=== PATIENT | female | born 1930 | race Caucasian/White ===

== ENCOUNTER 2017-06-12 03:38 | Emergency (ER) | payer MEDICARE, BC ==
--- NOTE | 2017-06-12 03:56 | EDM.PDOC ---
ED HPI GENERAL MEDICAL PROBLEM - General Chief Complaint: General Stated Complaint: fall, neck pain Time Seen by Provider: 06/12/17 03:45 Source of Information: Reports: Patient, EMS, Old Records ([facility] chart/EMR) History Limitations: Reports: No Limitations - History of Present Illness INITIAL COMMENTS - FREE TEXT/NARRATIVE: The patient was brought to the emergency room via ambulance in spinal immobilization secondary to a minor fall in her home. The patient was walking up her basement stairs when she fell backwards onto her right shoulder blade on the top steps themselves with no significant fall in distance, head injury, loss of consciousness, change in mental status, neck pain, paresthesias, neurological deficits, etc. She did apparently initially complain of some minor neck pain to the paramedics with cervical collar and full spinal restraints started. She was also started and some O2 although her O2 sat was 92% at home with injury occurring at about 23:00 hours. The patient did place some ice packs to the area with no other medications taken. The patient denies any chest pain/pressure, heart flutter, dizziness, orthostasis, orthopnea, diaphoresis, paresthesias, recent decreased exercise tolerance, or any other anginal-type symptoms. She was recently discharged from [facility] on 05/21 secondary to carotid stent placement and mild TIA as below. No recent history of abdominal pain, heartburn, diarrhea, melena, gross hematochezia, or any food intolerance, including fatty foods, etc., although she has some mild nausea and right lower pleurisy with deep inspiration. The patient also denies any recent fever, cough , wheezing, dyspnea, etc.. No history of recent headaches, visual changes, diplopia, or other change in neurological status. Patient denies neck pain at this time Onset: Today, Sudden Onset Date: 06/11/17 Onset Time: 23:00 Duration: Constant, Getting Worse Location: Reports: Chest (Right scapular and rib pain as above). Denies: Neck, Abdomen, Back, Pelvis, Upper Extremity, Left, Upper Extremity, Right, Lower Extremity, Left, Lower Extremity, Right, Radiates to Quality: Reports: Sharp Severity: Moderate Improves with: Reports: Rest Worsens with: Reports: Breathing, Movement Context: Reports: Trauma (As above) Associated Symptoms: Reports: Chest Pain (As above). 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 Denies : IV/IO Right Upper Back Pain Score (Numeric/FACES): 5 - Related Data Allergies Allergy/AdvReac Type Severity Reaction Status Date / Time morphine Allergy UNKNOWN Verified 09/08/15 08:18 nitrofurantoin Allergy Cannot Verified 06/12/17 03:58 [From Macrobid] Remember nitrofurazone [From Furacin] Allergy Blisters Verified 09/08/15 08:18 Home Meds: Home Meds Aspirin [Halfprin] 1 tab PO DAILY 07/03/14 [History] Cholecalciferol (Vitamin D3) [Vitamin D3] 5 tab PO DAILY 07/03/14 [History] Cyanocobalamin (Vitamin B12) [Vitamin B12] 1,000 mcg PO DAILY 07/03/14 [History] Multivitamin [Multivitamins] 1 tab PO DAILY 07/03/14 [History] Metoprolol Succinate [Toprol XL] 50 mg PO BID 09/07/15 [History] Ubidecarenone [Coq-10] 100 mg PO BID 09/07/15 [History] Hydrochlorothiazide 50 mg PO DAILY 09/08/15 [History] Lisinopril 10 mg PO BID 06/12/17 [History] Ticagrelor [Brilinta] 90 mg PO DAILY 06/12/17 [History] atorvaSTATin Calcium [Atorvastatin Calcium] 40 mg PO BEDTIME 06/12/17 [History] Past Medical History HEENT History: Reports: Cataract, Glaucoma, Hard of Hearing, Impaired Vision, Other (See Below). Denies: Allergic Rhinitis, Macular Degeneration, Retinal Detachment Other HEENT History: Borderline glaucoma, patient wears glasses, mild bilateral presbycusis, chronic vertigo, nasal septum deviation Cardiovascular History: Reports: Afib, Aneurysm, Arrhythmia, CAD, Cardiomyopathy , High Cholesterol, Hypertension, PVD, Stents, Other (See Below). Denies: Blood Clots/VTE/DVT, Heart Failure, Heart Murmur, MA, Syncope Other Cardiovascular History: Brief atrial fibrillation, borderline AAA with last measurement of 3.[address] scan, moderate carotid occlusive disease including right-sided 7079 percent stenosis by last carotid artery Doppler studies with recent stent placement as below, complete right bundle branch block , PVCs, PACs, left atrial enlargement by echocardiogram with minimal valvular disease, coronary artery disease/calcifications by CT scans with no history of MA, varicose veins Respiratory History: Reports: COPD, Intubation, Previous, Pulmonary Fibrosis, Sleep Apnea, Other (See Below). Denies: Intubation, Difficult, PE, Pneumothorax Other Respiratory History: History of nocturnal hypoxemia/sleep apnea with previous CPAP but no current oxygen supplementation, benign bilateral granulomatosis/pulmonary nodules Gastrointestinal History: Reports: Bowel Obstruction, Cholelithiasis, Chronic Diarrhea, Colon Polyp, Diverticulosis, Gastritis, Irritable Bowel Syndrome, PUD , Other (See Below). Denies: Celiac Disease, Chronic Constipation, GI Bleed, Inflammatory Bowel Disease Other Gastrointestinal History: History of recurrent diverticulitis, pre- cancerous polyp, fatty liver with secondary LFTs elevation Genitourinary History: Reports: Chronic Renal Insuffiency, Diabetic Nephropathy , Renal Calculus (Bilateral nephrolithiasis and renal cysts), Urinary Incontinence, UTI, Recurrent, Other (See Below). 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 Denies: Hypothyroidism Other Endocrine/Metabolic History: AODM diet controlled Hematologic History: Reports: Blood Transfusion(s), Other (See Below). 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 Denies: Eczema, Psoriasis - Infectious Disease History Infectious Disease History: Reports: Chicken Pox (At age 27) - Past Surgical History Head Surgeries/Procedures: Reports: None HEENT Surgical History: Reports: Adenoidectomy, Cataract Surgery, Tonsillectomy , Other (See Below) Other HEENT Surgeries/Procedures: Bilateral cataract surgery in 2011, tonsillectomy at age 12 Cardiovascular Surgical History: Reports: Carotid Stents, Varicose, Other (See Below) Other Cardiovascular Surgeries/Procedures: Right carotid artery stent placement on 05/19/17 Left leg varicose vein stripping on 02/28/06 GI Surgical History: Reports: Appendectomy, Colon, Colonoscopy, Polypectomy, Other (See Below) Other GI Surgeries/Procedures: Open cholecystectomy with concurrent appendectomy in about 1949, partial colectomy secondary to diverticulosis and adhesions on 02/17/1992 with additional bowel resection secondary to precancerous colonic polyp and only about 40 cm of her colon remaining, last colonoscopy on 09/08/15 Female Surgical History: Reports: Breast Biopsy, D&C, Hysterectomy, Lithotripsy/ESWL, Mastectomy, Salpingo-Oophorectomy, Other (See Below) Other Female Surgeries/Procedures: Hysterectomy with one-sided oophorectomy secondary to dysfunctional uterine bleeding in about 1978, D&C in 1978 secondary to SAB, left breast needle biopsy on 04/08/09 with subsequent left modified radical mastectomy on 04/28/2009, right-sided lithotripsy on 06/24/15 Neurological Surgical History: Reports: None. Denies: C-Spine, Discectomy, Laminectomy, Lumbar Spine, Sacral Spine, Spinal Fusion, Vertebroplasty Musculoskeletal Surgical History: Reports: Arthroscopic Knee, Arthroscopic Procedure, Carpal Tunnel, Shoulder Surgery, Other (See Below). Denies: Ganglion Cyst, Joint Replacement, ORIF Other Musculoskeletal Surgeries/Procedures:: Left knee and left shoulder arthroscopic evaluations on 06/14/02, left carpal tunnel release on 09/01/09 Oncologic Surgical History: Reports: Biopsy of Breast, Mastectomy, Other (See Below) Other Oncologic Surgeries/Procedures: Breast biopsy and mastectomy as above - Past Imaging History Past Imaging History: Reports: Angiography (Carotid angiogram with right sided stent placement on 05/19/17), Cardiac Echo (01/05/12 with ejection fraction of 61%) , Carotid US (Last on 10/12/14), CAT Scan (Last CT scan of the head in May 2017 with multiple previous studies including on 08/08/16, CT of the abdomen and pelvis on 03/01/15, CT of the chest with contrast on 05/03/16 with previous evaluation on 06/25/11), DEXA Scan (05/09/09), Mammogram (Last mammogram on 05/03/16 ), MRA (MRA/MRI of the cervical and head region in May 2017), MRI, Sleep Study (Last on 03/04/12), Stress Testing (Cardiolite stress test on 08/10/10 with ejection fraction of 77%), Ultrasound (Last renal ultrasound on 05/11/16 with previous evaluation on 06/27/11, thyroid ultrasound on 06/27/11) Social & Family History - Family History Cardiac: Reports: CAD, Hypertension, MA, Other (See Below) Other Cardiac Family History: Father with MA in his 70s, hypertension in parents GI: Reports: Hepatitis, Jaundice, Other (See Below) Other GI Family History: Son with history of liver transplant at age 44 secondary to alcohol and Tylenol abuse Musculoskeletal: Reports: Osteoarthritis, Other (See Below) Other Musculoskeletal Family History: Mother with severe osteoarthritis Neurological: Reports: CVA, Other (See Below) Other Neurological Family History: Maternal grandfather with fatal CVA at age 75 , mother with CVA at age 95 Psychiatric: Reports: Anxiety, Depression, Other (See Below) Other Psychiatric Family History: Son with history of anxiety depression disorder and alcohol abuse Endocrine/Metabolic: Reports: Diabetes, type II, Other (See Below) Other Endocrine/Metabolic Family History: AODM and mother, unknown type of thyroid disorder in brother and niece Oncologic: Reports: Bladder, Breast, Non-Hodgkin's Lymphoma, Ovarian, Other ( See Below) Other Oncologic Family History: Maternal aunt with breast cancer in her 70s, maternal aunt with bladder cancer in her 80s, daughter with ovarian cancer at age 45, son who had previous liver transplant also suffered from salivary cancer at age 53, son with Burkitt's lymphoma at age 53 which was fatal, first maternal cousin with gallbladder cancer in her 60s - Tobacco Use Smoking Status *Q: Former Smoker Tobacco Use Within Last Twelve Months: Cigarettes Years of Tobacco use: 58 Packs/Tins Daily: 1.5 Used Tobacco, but Quit: Yes Month Tobacco Last Used: January 2017 Smoking Cessation Information Provided To Patient: No Second Hand Smoke Exposure: No - Caffeine Use Caffeine Use: Reports: Coffee (3 cups per day) - Alcohol Use Alcohol Use History: Yes Days Per Week of Alcohol Use: 0 (No previous DWIs, problems with alcohol abuse, etc.) Number of Drinks Per Day: 1 (Occasional wine or beer with dinner) Total Drinks Per Week: 0 Alcohol Use in Last Twelve Months: Yes Alcohol Use Frequency: Socially - Recreational Drug Use Recreational Drug Use: No Drug Use in Last 12 Months: No - Living Situation & Occupation Living situation: Reports: (1989), Alone 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 Denies: Fever, Chills, Weakness, Fatigue , Night Sweats, Diaphoresis, Decreased Appetite, Weight Loss, Weight Gain HEENT: Reports: No Symptoms, Glasses, Hearing Loss. Denies: Dental Pain, Ear Pain, Eye Pain, Throat Pain, Throat Swelling, Vertigo, Vision Change Respiratory: Reports: Pleuritic Chest Pain (Mild to moderate Right lower anterolateral chest wall, rib pain with deep inspiration and by palpation), Other (Right scapular pain). Denies: Cough, Sputum, Hemoptysis Cardiovascular: Reports: Chest Pain (Right chest wall pain as above), Blood Pressure Problem (Somewhat elevated on arrival). Denies: Dyspnea on Exertion, Edema, Lightheadedness, Orthopnea, Palpitations, PND, Syncope Endocrine: Reports: No Symptoms. Denies: Fatigue, High Glucose GI/Abdominal: Reports: No Symptoms. Denies: Abdominal Pain, Anorexia, Black Stool, Bloody Stool, Constipation, Diarrhea, Decreased Appetite, Difficulty Swallowing, Distension, Hematochezia, Melena, Nausea, Stool Incontinence, Vomiting : Reports: Incontinence (Stable chronic). Denies: Discharge, Dysuria, Flank Pain, Frequency, Hematuria, Urgency, Urinary Retention Musculoskeletal: Reports: Other (Right scapular pain as above). Denies: Neck Pain, Shoulder Pain, Arm Pain, Leg Pain Skin: Reports: Bruising (Right scapular region). Denies: Cyanosis, Pallor, Diaphoresis, Wound Neurological: Reports: No Symptoms. Denies: Confusion, Dizziness, Headache, Numbness, Paresthesia, Seizure, Syncope, Tingling, Weakness Psychiatric: Reports: No Symptoms. Denies: Agitation, Anxiety, Confusion, Depression, Hallucinations, Suicidal Ideation Hematologic/Lymphatic: Reports: No Symptoms Immunologic: Reports: No Symptoms ED EXAM, GENERAL - Physical Exam Exam: See Below Exam Limited By: No Limitations General Appearance: Alert, WD/WN, No Apparent Distress Eye Exam: Bilateral Eye: EOMI, Normal Fundi, Normal Inspection (No nystagmus), PERRL Ears: Normal External Exam, Normal Canal, Normal TMs, Hearing Loss (Mild bilateral presbycusis) Nose: Normal Inspection, Normal Mucosa, No Blood. No: Clear Rhinorrhea Throat/Mouth: Normal Inspection, Normal Lips, Normal Gums, Normal Oropharynx, Normal Voice, No Airway Compromise. No: Normal Teeth (Complete upper dentures, partial lowers), Dysphagia, Perioral Cyanosis Head: Atraumatic, Normocephalic. No: Facial Swelling, Facial Tenderness, Sinus Tenderness Neck: Supple, Non-Tender, Full Range of Motion, Carotid Bruit (Mild bilateral carotid bruits). No: Lymphadenopathy (L), Lymphadenopathy (R), Thyromegaly Respiratory/Chest: No Respiratory Distress, Lungs Clear, Normal Breath Sounds, No Accessory Muscle Use, Other (Right-sided mid lateral 4 cm moderate ecchymosis with moderate localized palpation pain, additional right-sided lateral inferior rib pain by palpation with no crepitation, deformity, ecchymosis in this area, etc.). No: Pleural Rub, Retractions, Splinting Cardiovascular: Normal Peripheral Pulses, Regular Rate, Rhythm, No Edema, No Gallop, No JVD, No Murmur, No Rub. No: Gallop/S3, Gallop/S4, Friction Rub Peripheral Pulses: 2+: Radial (L), Radial (R), Femoral (L), Femoral (R) (No evidence of right femoral artery aneurysm with mild ecchymosis in this region and clear dressing in place), Dorsalis Pedis (L), Dorsalis Pedis (R) GI/Abdominal: Normal Bowel Sounds, Soft, Non-Tender, No Organomegaly, No Distention, No Abnormal Bruit, No Mass, Pelvis Stable, Other (Multiple abdominal scars with mild ecchymosis in the lower right abdominal region secondary to recent carotid stent placement). No: Rebound (Female) Exam: Deferred Rectal (Female) Exam: Deferred Back Exam: Normal Inspection, Full Range of Motion, Other (Scoliosismild). No : CVA Tenderness (L), CVA Tenderness (R), Muscle Spasm Extremities: Normal Inspection, Normal Range of Motion, Non-Tender, No Pedal Edema, Normal Capillary Refill. No: Melissa's Sign Neurological: Alert, Oriented, CN II-XII Intact, Normal Cognition, Normal Gait, Normal Reflexes (Negative Babinski's, finger to nose, and pronator rotation tests. No evidence of facial paresis, tongue deviation, orthostasis, etc.. Excellent reverse thought processes.), No Motor/Sensory Deficits Psychiatric: Normal Affect, Normal Mood Skin Exam: Ecchymosis (As above), Wound/Incision (Old 1 cm in diameter eschar over right elbow). No: Diaphoretic Lymphatic: No Adenopathy Course - Vital Signs Last Recorded V/S: Last Vital Signs Temp 36.8 C 06/12/17 03:39 Pulse 89 06/12/17 04:52 Resp 18 06/12/17 03:39 BP 152/90 H 06/12/17 04:52 Pulse Ox 97 06/12/17 03:39 Vital Signs - 24 hr 06/12/17 06/12/17 06/12/17 03:39 03:56 04:52 Temperature [ 36.8 C Oral] Pulse, 92 89 Peripheral [ Left Pulse Oximetry] Respiratory 18 Rate Blood Pressure 166/103 H 162/90 H 152/90 H [Left Upper Arm ] O2 Sat by Pulse 97 Oximetry - Orders/Labs/Meds Orders: Active Orders 24 hr Category Date Time Status Cardiac Monitoring [RC] . DIRECTED Care 06/12/17 03:57 Active Peripheral IV Care [RC] . DIRECTED Care 06/12/17 04:02 Active Cervical Spine wo Cont [CT] Stat Exams 06/12/17 03:57 Stop Req Cervical Spine wo Cont [CT] Stat Exams 06/12/17 03:57 Taken Chest wo Cont [CT] Stat Exams 06/12/17 04:15 Taken Ribs 2V w Chest Rt [CR] Stat Exams 06/12/17 04:01 Taken Sodium Chloride 0.9% [Saline Flush] Med 06/12/17 04:01 Active 10 ml FLUSH ASDIRECTED PRN Obtain Past Medical Record [OM.PC] Urgent Oth 06/12/17 04:03 Active Peripheral IV Insertion Adult [OM.PC] Stat Oth 06/12/17 04:01 Ordered Medication Orders Sodium Chloride (Saline Flush) 10 ml FLUSH ASDIRECTED PRN PRN Reason: Keep Vein Open Labs: Laboratory Tests 06/12/17 06/12/17 06/12/17 Range/Units 04:15 04:15 04:15 WBC 11.3 H (4.0-10.2) K/uL RBC 4.40 (3.77-5.09) M/uL Hgb 14.2 (11.7-15.5) g/dL Hct 41.4 (34.0-46.0) % MCV 94.1 (84.0-98.0) fL MCH 32.3 (28.2-33.3) pg MCHC 34.3 (31.7-36.0) g/dL RDW 13.6 (11.2-14.1) % Plt Count 126 L (150-350) K/uL Neut % (Auto) 83.7 H (45.0-80.0) % Lymph % (Auto) 7.3 L (10.0-50.0) % Boyle % (Auto) 8.4 (2.0-14.0) % Eos % (Auto) 0.4 (0.0-5.0) % Baso % (Auto) 0.2 (0.0-2.0) % Neut # (Auto) 9.46 H (1.40-7.00) K/uL Lymph # (Auto) 0.82 (0.50-3.50) K/uL Boyle # (Auto) 0.95 (0.00-1.00) K/uL Eos # (Auto) 0.05 (0.00-0.50) K/uL Baso # (Auto) 0.02 (0.00-0.20) K/uL PT 11.4 (9.8-11.7) SEC INR 1.1 APTT 22.4 L (23.5-30.0) SEC Sodium 140 (136-145) mmol/L Potassium 3.6 (3.5-5.1) mmol/L Chloride 102 (98-107) mmol/L Carbon Dioxide 29.4 (21.0-32.0) mmol/L BUN 20 H (7-18) mg/dL Creatinine 0.88 (0.51-1.17) mg/dL Est Cr Clr Drug Dosing 33.57 mL/min Estimated GFR (MDRD) > 60 mL/min Glucose 162 H (74-106) mg/dL Lactic Acid (0.4-2.0) mmol/L Calcium 8.8 (8.5-10.1) mg/dL Magnesium 1.7 L (1.8-2.4) mg/dL Total Bilirubin 0.9 (0.2-1.0) mg/dL AST 38 H (15-37) U/L ALT 38 (12-78) U/L Alkaline Phosphatase 90 (46-116) IU/L Total Protein 7.9 (6.4-8.2) g/dL Albumin 3.8 (3.4-5.0) g/dL Amylase 95 (25-115) U/L Lipase 148 (73-393) U/L 07/26/17 Range/Units 04:15 WBC (4.0-10.2) K/uL RBC (3.77-5.09) M/uL Hgb (11.7-15.5) g/dL Hct (34.0-46.0) % MCV (84.0-98.0) fL MCH (28.2-33.3) pg MCHC (31.7-36.0) g/dL RDW (11.2-14.1) % Plt Count (150-350) K/uL Neut % (Auto) (45.0-80.0) % Lymph % (Auto) (10.0-50.0) % Boyle % (Auto) (2.0-14.0) % Eos % (Auto) (0.0-5.0) % Baso % (Auto) (0.0-2.0) % Neut # (Auto) (1.40-7.00) K/uL Lymph # (Auto) (0.50-3.50) K/uL Boyle # (Auto) (0.00-1.00) K/uL Eos # (Auto) (0.00-0.50) K/uL Baso # (Auto) (0.00-0.20) K/uL PT (9.8-11.7) SEC INR APTT (23.5-30.0) SEC Sodium (136-145) mmol/L Potassium (3.5-5.1) mmol/L Chloride (98-107) mmol/L Carbon Dioxide (21.0-32.0) mmol/L BUN (7-18) mg/dL Creatinine (0.51-1.17) mg/dL Est Cr Clr Drug Dosing mL/min Estimated GFR (MDRD) mL/min Glucose (74-106) mg/dL Lactic Acid 1.0 (0.4-2.0) mmol/L Calcium (8.5-10.1) mg/dL Magnesium (1.8-2.4) mg/dL Total Bilirubin (0.2-1.0) mg/dL AST (15-37) U/L ALT (12-78) U/L Alkaline Phosphatase (46-116) IU/L Total Protein (6.4-8.2) g/dL Albumin (3.4-5.0) g/dL Amylase (25-115) U/L Lipase (73-393) U/L Meds: Medications Generic Name Dose Route Start Last Admin Trade Name Freq PRN Reason Stop Dose Admin Sodium Chloride 10 ml 06/12/17 04:01 Saline Flush FLUSH ASDIRECTED PRN Keep Vein Open - Radiology Interpretation Free Text/Narrative:: 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 Moderate COPD and pulmonary fibrotic changes with moderate calcification of the aortic valve and mild prominence of the proximal aortic arch. No cardiomegaly or CHF. Moderate osteoarthritic and osteoporotic changes in the thoracic spine Preliminary written report of CT scan of the C-spine and chest both without contrast shows no evidence of acute fractures or dislocations. Note that requested verbal stat read was not received. Departure - Departure Time of Disposition: 18:55 Disposition: Home, Self-Care 01 Condition: Good Clinical Impression: Contusion, Heart disease, Carotid arterial disease, Hypertension, COPD ( chronic obstructive pulmonary disease), Hyperlipidemia, Osteoarthritis, TIA involving right internal carotid artery, Sleep apnea, obstructive, Hypomagnesemia - Discharge Information Instructions: Contusion, [id number] Referrals: Kathleen Puga PA [Primary Care Provider] - Forms: ED Department Discharge Additional Instructions: 1. Followup with your regular provider in 5-7 days as directed for reevaluation and recommended repeat CBC, magnesium level, and comprehensive metabolic panel. 2. Tylenol 650 mg by mouth every 4 hours and/or OTC ibuprofen 2-3 tabs by mouth every 6 hours with food as directed./needed. 3. Otherwise may follow up with your regular provider, Kathleen Puga PA-C, at [facility] [place], later today as already scheduled with further discussion of initiation of home O2 AI for your sleep apnea 4. Continue strict fall precautions with discussion with regular provider of possible home safety evaluation 5. Tylenol 650 mg by mouth every 4 hours and/or OTC ibuprofen 2-3 tabs by mouth every 6 hours with food as directed./needed. 6. BenGay or equivalent, heating pad, and/or ice packs as directed. - Problem List & Annotations (1) Contusion SNOMED Code(s): 414862997 Code(s): T14.8 - OTHER INJURY OF UNSPECIFIED BODY REGION Status: Acute Priority: High Current Visit: Yes Onset Date: 06/11/17 Annotation/Comment: : Minor right scapular and chest wall/rib contusions with negative CT scans as above. Topical care as per discharge instructions. Follow precautions, etc. discussed with the patient and her daughter, who was provided a [employer] work excuse Qualifiers: Encounter type: initial encounter Contusion area: thoracic wall Contusion of thoracic wall detail: back wall of thorax Laterality: right Qualified Code(s): S20.221A - Contusion of right back wall of thorax, initial encounter (2) Carotid arterial disease SNOMED Code(s): 318134004 Code(s): I77.9 - DISORDER OF ARTERIES AND ARTERIOLES, UNSPECIFIED Status: Chronic Priority: Medium Current Visit: Yes Annotation/Comment:: Patient denies any change in her neurological status, syncope, etc. 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 despite spiked mild leukocytosis today, which is likely related to stress reaction Qualifiers: COPD type: emphysema Emphysema type: panlobular Qualified Code(s): J43.1 - Panlobular emphysema (5) Heart disease SNOMED Code(s): 92416810 Code(s): I51.9 - HEART DISEASE, UNSPECIFIED Status: Chronic Priority: Medium Current Visit: Yes Annotation/Comment:: Previous history of brief atrial fibrillation, PVCs, PACs, and complete right bundle branch block with no recent chest pain or anginal complaints (6) Hyperlipidemia SNOMED Code(s): 13161871 Code(s): E78.5 - HYPERLIPIDEMIA, UNSPECIFIED Status: Chronic Priority: Medium Current Visit: Yes Annotation/Comment:: Stable by history with history of fatty liver and secondary LFTs elevation, including today Qualifiers: Hyperlipidemia type: unspecified Qualified Code(s): E78.5 - Hyperlipidemia , unspecified (7) Hypertension SNOMED Code(s): 56440129 Code(s): I10 - ESSENTIAL (PRIMARY) HYPERTENSION Status: Chronic Priority : Medium Current Visit: Yes Annotation/Comment:: Blood pressure somewhat elevated initially on arrival secondary to her discomfort, however improved prior to discharge without treatment Qualifiers: Hypertension type: essential hypertension Qualified Code(s): I10 - Essential (primary) hypertension (8) Osteoarthritis SNOMED Code(s): 214756812 Code(s): M19.90 - UNSPECIFIED OSTEOARTHRITIS, UNSPECIFIED SITE Status: Chronic Priority: Medium Current Visit: Yes Annotation/Comment:: Otherwise stable by history. Note previous history of positive KAREN without significant SLE Qualifiers: Osteoarthritis location: multiple joints Osteoarthritis type: primary Qualified Code(s): M15.0 - Primary generalized (osteo)arthritis (9) Sleep apnea, obstructive SNOMED Code(s): 74541428 Code(s): G47.33 - OBSTRUCTIVE SLEEP APNEA (ADULT) (PEDIATRIC) Status: Chronic Priority: Medium Current Visit: Yes Annotation/Comment:: Patient has been noncompliant with her CPAP. She will discuss this further with her regular provider as per discharge instructions (10) Hypomagnesemia SNOMED Code(s): 538085354 Code(s): E83.42 - HYPOMAGNESEMIA Status: Chronic Priority: Medium Current Visit: Yes Onset Date: ~06/12/17 Annotation/Comment:: Observe for now with close follow-up by regular provider as per discharge instructions - Problem List Review Problem List Initiated/Reviewed/Updated: Yes - My Orders Last 24 Hours: My Active Orders 06/12/17 03:57 Cardiac Monitoring [RC] . DIRECTED Cervical Spine wo Cont [CT] Stat Cervical Spine wo Cont [CT] Stat 06/12/17 04:01 Ribs 2V w Chest Rt [CR] Stat Sodium Chloride 0.9% [Saline Flush] 10 ml FLUSH ASDIRECTED PRN Peripheral IV Insertion Adult [OM.PC] Stat 06/12/17 04:02 Peripheral IV Care [RC] . DIRECTED 06/12/17 04:03 Obtain Past Medical Record [OM.PC] Urgent 06/12/17 04:15 Chest wo Cont [CT] Stat - Assessment/Plan Last 24 Hours: My Active Orders 06/12/17 03:57 Cardiac Monitoring [RC] . DIRECTED Cervical Spine wo Cont [CT] Stat Cervical Spine wo Cont [CT] Stat 06/12/17 04:01 Ribs 2V w Chest Rt [CR] Stat Sodium Chloride 0.9% [Saline Flush] 10 ml FLUSH ASDIRECTED PRN Peripheral IV Insertion Adult [OM.PC] Stat 06/12/17 04:02 Peripheral IV Care [RC] . DIRECTED 06/12/17 04:03 Obtain Past Medical Record [OM.PC] Urgent 06/12/17 04:15 Chest wo Cont [CT] Stat Assessment:: As above Plan: As above. Extensive precautions were given to the patient and her daughter, who are in agreement with the treatment plan. See Patient Instructions for further treatment and plan. Note that patient was uncertain about her current medical therapy with her daughter to verify this later today
[2017-06-12] MEDS ORDERED: Sodium Chloride 0.9% 10 ML Syringe FLUSH PRN (04:01)
[2017-06-12 04:32] LABS: CHLORIDE,CL 102 mmol/L (98-107); SODIUM,NA 140 mmol/L (136-145)
[2017-06-12 04:53] VITALS: BP 152/90
== END 2017-06-12 06:55 | disposition home or self-care (01) ==
LOC: LL.ED 03:38
DX: G45.9 Transient cerebral ischemic attack, unspecified (principal); G47.30 Sleep apnea, unspecified; E83.42 Hypomagnesemia; E78.5 Hyperlipidemia, unspecified; J44.9 Chronic obstructive pulmonary disease, unspecified; M19.90 Unspecified osteoarthritis, unspecified site; I25.10 Atherosclerotic heart disease of native coronary artery without angina pectoris; I12.9 Hypertensive chronic kidney disease with stage 1 through stage 4 chronic kidney disease, or unspecified chronic kidney disease; N18.9 Chronic kidney disease, unspecified; I48.91 Unspecified atrial fibrillation; E78.00 Pure hypercholesterolemia, unspecified; E11.21 Type 2 diabetes mellitus with diabetic nephropathy; E11.22 Type 2 diabetes mellitus with diabetic chronic kidney disease; Z88.5 Allergy status to narcotic agent; Z88.8 Allergy status to other drugs, medicaments and biological substances; Z79.82 Long term (current) use of aspirin; Z79.899 Other long term (current) drug therapy; Z86.73 Personal history of transient ischemic attack (TIA), and cerebral infarction without residual deficits; M81.0 Age-related osteoporosis without current pathological fracture; Z98.890 Other specified postprocedural states; Z98.49 Cataract extraction status, unspecified eye; Z87.891 Personal history of nicotine dependence
CPT/HCPCS: 36000; 36415; 71101-RT; 71250; 72125; 80053; 82150; 83605; 83690; 83735; 85025; 85610; 85730; 99284; 99285

== ENCOUNTER 2018-04-21 20:20 | Emergency (ER) | payer MEDICARE, BC | END 2018-04-21 21:05 | disposition home or self-care (01) | LOC: LL.ED 20:20 | DX: T63.461A Toxic effect of venom of wasps, accidental (unintentional), initial encounter (principal); I10 Essential (primary) hypertension; E78.00 Pure hypercholesterolemia, unspecified; Z88.8 Allergy status to other drugs, medicaments and biological substances; Z79.899 Other long term (current) drug therapy | CPT/HCPCS: 99281; 99283 ==